=== PATIENT | male | born 1960 | race Two or more races ===

== ENCOUNTER → 2017-12-25 | Emergency (ER) | payer OTHER ==
[~2017-12-25] VITALS: Ht 185.4 cm; Wt 124.7 kg
[~2017-12-25] MED LIST: GLUCOPHAGE XR750 MG PO; LOSARTAN-HCTZ1 EACH; LOSARTAN-HCTZ1 EACH PO; METFORMIN HCL1000 MG PO; METFORMIN HCL500 MG PO; OSEL75CA PO; TUSSI PRES-B L120 M1 PO
== END | disposition home or self-care (01) ==
LOC: ER 08:58
DX: M54.5 Low back pain (principal); B34.9 Viral infection, unspecified